=== PATIENT | male | born 1960 | race Caucasian/White ===

== ENCOUNTER 2023-02-06 11:09 | Outpatient (CLI) | payer BC | END 2023-02-06 11:10 | disposition home or self-care (01) | LOC: CSHWCC 11:09 | PROVIDERS: ATTEND Nurse Practitioner Family | DX: L59.8 Other specified disorders of the skin and subcutaneous tissue related to radiation (principal); Z85.819 Personal history of malignant neoplasm of unspecified site of lip, oral cavity, and pharynx | CPT/HCPCS: G0277 ==

== ENCOUNTER 2023-02-08 12:43 | Outpatient (CLI) | payer BC | END 2023-02-08 12:44 | disposition home or self-care (01) | LOC: CSHWCC 12:43 | PROVIDERS: ATTEND Nurse Practitioner Family | DX: T66.XXXD Radiation sickness, unspecified, subsequent encounter (principal); Z85.819 Personal history of malignant neoplasm of unspecified site of lip, oral cavity, and pharynx | CPT/HCPCS: G0277 ==

== ENCOUNTER 2023-02-09 11:51 | Outpatient (CLI) | payer BC | END 2023-02-09 11:52 | disposition home or self-care (01) | LOC: CSHWCC 11:51 | PROVIDERS: ATTEND Nurse Practitioner Family | DX: L59.8 Other specified disorders of the skin and subcutaneous tissue related to radiation (principal); Z85.819 Personal history of malignant neoplasm of unspecified site of lip, oral cavity, and pharynx | CPT/HCPCS: G0277 ==

== ENCOUNTER 2023-02-10 08:28 | Outpatient (CLI) | payer BC | END 2023-02-10 08:29 | disposition home or self-care (01) | LOC: CSHWCC 08:28 | PROVIDERS: ATTEND Nurse Practitioner Family | DX: L59.8 Other specified disorders of the skin and subcutaneous tissue related to radiation (principal) | CPT/HCPCS: G0277 ==

== ENCOUNTER 2023-02-22 11:09 | Outpatient (CLI) | payer BC | END 2023-02-22 11:10 | disposition home or self-care (01) | LOC: CSHWCC 11:09 | PROVIDERS: ATTEND Nurse Practitioner Family | DX: L59.8 Other specified disorders of the skin and subcutaneous tissue related to radiation (principal); Z85.819 Personal history of malignant neoplasm of unspecified site of lip, oral cavity, and pharynx | CPT/HCPCS: G0277 ==

== ENCOUNTER 2023-02-23 11:23 | Outpatient (CLI) | payer BC | END 2023-02-23 11:24 | disposition home or self-care (01) | LOC: CSHWCC 11:23 | PROVIDERS: ATTEND Nurse Practitioner Family | DX: T66.XXXD Radiation sickness, unspecified, subsequent encounter (principal); Z85.819 Personal history of malignant neoplasm of unspecified site of lip, oral cavity, and pharynx | CPT/HCPCS: G0277 ==

== ENCOUNTER 2023-02-24 10:15 | Outpatient (CLI) | payer BC | END 2023-02-24 10:16 | disposition home or self-care (01) | LOC: CSHWCC 10:15 | PROVIDERS: ATTEND Nurse Practitioner Family | DX: T66.XXXD Radiation sickness, unspecified, subsequent encounter (principal); Z85.819 Personal history of malignant neoplasm of unspecified site of lip, oral cavity, and pharynx | CPT/HCPCS: G0277 ==

== ENCOUNTER 2023-03-01 11:30 | Outpatient (CLI) | payer BC | END 2023-03-01 11:31 | disposition home or self-care (01) | LOC: CSHWCC 11:30 | PROVIDERS: ATTEND Nurse Practitioner Family | DX: L59.8 Other specified disorders of the skin and subcutaneous tissue related to radiation (principal) | CPT/HCPCS: G0277 ==

== ENCOUNTER 2023-03-02 11:25 | Outpatient (CLI) | payer BC | END 2023-03-02 11:26 | disposition home or self-care (01) | LOC: CSHWCC 11:25 | PROVIDERS: ATTEND Nurse Practitioner Family | DX: L59.8 Other specified disorders of the skin and subcutaneous tissue related to radiation (principal); Z85.819 Personal history of malignant neoplasm of unspecified site of lip, oral cavity, and pharynx | CPT/HCPCS: G0277 ==

== ENCOUNTER 2023-03-06 11:07 | Outpatient (CLI) | payer BC | END 2023-03-06 11:08 | disposition home or self-care (01) | LOC: CSHWCC 11:07 | PROVIDERS: ATTEND Nurse Practitioner Family | DX: T66.XXXD Radiation sickness, unspecified, subsequent encounter (principal); Z85.819 Personal history of malignant neoplasm of unspecified site of lip, oral cavity, and pharynx | CPT/HCPCS: G0277 ==

== ENCOUNTER 2023-03-09 12:50 | Outpatient (CLI) | payer BC | END 2023-03-09 12:51 | disposition home or self-care (01) | LOC: CSHWCC 12:50 | PROVIDERS: ATTEND Nurse Practitioner Family | DX: L59.8 Other specified disorders of the skin and subcutaneous tissue related to radiation (principal); Z85.819 Personal history of malignant neoplasm of unspecified site of lip, oral cavity, and pharynx | CPT/HCPCS: G0277 ==

== ENCOUNTER 2023-03-15 09:34 | Outpatient (CLI) | payer BC | END 2023-03-15 09:35 | disposition home or self-care (01) | LOC: CSHWCC 09:34 | PROVIDERS: ATTEND Nurse Practitioner Family | DX: L59.8 Other specified disorders of the skin and subcutaneous tissue related to radiation (principal); M27.2 Inflammatory conditions of jaws | CPT/HCPCS: G0277 ==

== ENCOUNTER 2023-03-16 08:51 | Outpatient (CLI) | payer BC, OTHER | END 2023-03-16 08:52 | disposition home or self-care (01) | LOC: CSHWCC 08:51 | PROVIDERS: ATTEND Nurse Practitioner Family | DX: M27.2 Inflammatory conditions of jaws (principal); L59.8 Other specified disorders of the skin and subcutaneous tissue related to radiation | CPT/HCPCS: G0277 ==

== ENCOUNTER 2023-03-17 08:48 | Outpatient (CLI) | payer BC, OTHER | END 2023-03-17 08:49 | disposition home or self-care (01) | LOC: CSHWCC 08:48 | PROVIDERS: ATTEND Nurse Practitioner Family | DX: L59.8 Other specified disorders of the skin and subcutaneous tissue related to radiation (principal); M27.2 Inflammatory conditions of jaws | CPT/HCPCS: G0277 ==

== ENCOUNTER 2023-03-20 09:37 | Outpatient (CLI) | payer BC, OTHER | END 2023-03-20 09:38 | disposition home or self-care (01) | LOC: CSHWCC 09:37 | PROVIDERS: ATTEND Nurse Practitioner Family | DX: M27.2 Inflammatory conditions of jaws (principal); T66.XXXD Radiation sickness, unspecified, subsequent encounter; Z85.819 Personal history of malignant neoplasm of unspecified site of lip, oral cavity, and pharynx | CPT/HCPCS: 11042; G0277 ==

== ENCOUNTER 2023-03-27 12:31 | Outpatient (CLI) | payer BC | END 2023-03-27 12:32 | disposition home or self-care (01) | LOC: CSHWCC 12:31 | PROVIDERS: ATTEND Nurse Practitioner Family | DX: M27.2 Inflammatory conditions of jaws (principal) | CPT/HCPCS: G0277 ==

== ENCOUNTER 2023-03-28 11:10 | Outpatient (CLI) | payer BC, OTHER, SELFPAY | END 2023-03-28 11:11 | disposition home or self-care (01) | LOC: CSHWCC 11:10 | PROVIDERS: ATTEND Nurse Practitioner Family | DX: T66.XXXD Radiation sickness, unspecified, subsequent encounter (principal); M27.2 Inflammatory conditions of jaws; Z85.819 Personal history of malignant neoplasm of unspecified site of lip, oral cavity, and pharynx | CPT/HCPCS: G0277 ==

== ENCOUNTER 2023-03-29 11:23 | Outpatient (CLI) | payer BC, OTHER, SELFPAY | END 2023-03-29 11:24 | disposition home or self-care (01) | LOC: CSHWCC 11:23 | PROVIDERS: ATTEND Nurse Practitioner Family | DX: T66.XXXD Radiation sickness, unspecified, subsequent encounter (principal); M27.2 Inflammatory conditions of jaws; Z85.819 Personal history of malignant neoplasm of unspecified site of lip, oral cavity, and pharynx | CPT/HCPCS: G0277 ==

== ENCOUNTER 2023-03-30 11:19 | Outpatient (CLI) | payer BC, OTHER, SELFPAY | END 2023-03-30 11:20 | disposition home or self-care (01) | LOC: CSHWCC 11:19 | PROVIDERS: ATTEND Nurse Practitioner Family | DX: M27.2 Inflammatory conditions of jaws (principal); L59.8 Other specified disorders of the skin and subcutaneous tissue related to radiation | CPT/HCPCS: G0277 ==

== ENCOUNTER 2023-03-31 08:18 | Outpatient (CLI) | payer BC, OTHER, SELFPAY | END 2023-03-31 08:19 | disposition home or self-care (01) | LOC: CSHWCC 08:18 | PROVIDERS: ATTEND Nurse Practitioner Family | DX: M27.2 Inflammatory conditions of jaws (principal); L59.8 Other specified disorders of the skin and subcutaneous tissue related to radiation | CPT/HCPCS: G0277 ==

== ENCOUNTER 2023-04-05 13:06 | Outpatient (CLI) | payer BC | END 2023-04-05 13:07 | disposition home or self-care (01) | LOC: CSHWCC 13:06 | PROVIDERS: ATTEND Nurse Practitioner Family | DX: L59.8 Other specified disorders of the skin and subcutaneous tissue related to radiation (principal) | CPT/HCPCS: G0277 ==

== ENCOUNTER 2023-04-06 13:25 | Outpatient (CLI) | payer BC | END 2023-04-06 13:26 | disposition home or self-care (01) | LOC: CSHWCC 13:25 | PROVIDERS: ATTEND Nurse Practitioner Family | DX: L59.8 Other specified disorders of the skin and subcutaneous tissue related to radiation (principal) | CPT/HCPCS: G0277 ==

== ENCOUNTER 2023-04-10 15:03 | Outpatient (CLI) | payer BC, SELFPAY | END 2023-04-10 15:04 | disposition home or self-care (01) | LOC: CSHWCC 15:03 | PROVIDERS: ATTEND Nurse Practitioner Family | DX: L59.8 Other specified disorders of the skin and subcutaneous tissue related to radiation (principal) | CPT/HCPCS: G0277 ==

== ENCOUNTER → 2023-04-11 | Outpatient (CLI) | payer BC | LOC: CSHWCC 08:00 | PROVIDERS: ATTEND Nurse Practitioner Family | DX: T66.XXXD Radiation sickness, unspecified, subsequent encounter (principal); Z85.819 Personal history of malignant neoplasm of unspecified site of lip, oral cavity, and pharynx | CPT/HCPCS: G0277 ==